=== PATIENT | female | born 1990 | race Caucasian/White ===

== ENCOUNTER 2018-06-20 17:32 | Emergency (ER) | payer OTHER | END 2018-06-20 19:07 | disposition home or self-care (01) | LOC: M ED 17:32 | DX: S43.401A Unspecified sprain of right shoulder joint, initial encounter (principal); W01.0XXA Fall on same level from slipping, tripping and stumbling without subsequent striking against object, initial encounter; Y92.89 Other specified places as the place of occurrence of the external cause; Z79.3 Long term (current) use of hormonal contraceptives; Z91.030 Bee allergy status | CPT/HCPCS: 73030 ==

== ENCOUNTER 2018-10-10 17:23 | Emergency (ER) | payer OTHER ==
[~2018-10-10] VITALS: Ht 152.4 cm; Wt 62.7 kg
[~2018-10-10 17:23] MED LIST: COLA100C5 PO; IBUP-1114 PO; JUNETAB2 PO; MAPA500T2 PO; PRENTAB20 PO
[2018-10-10] MEDS ORDERED: NS 1,000 ML IV ONE (18:00)
[2018-10-10] MEDS ORDERED: PANTOPRAZOLE 40MG INJ (PROTONIX) (C9113) IV ONE (18:00)
[2018-10-10] MEDS ORDERED: ONDANSETRON 4MG/2ML VIAL (J2405) IV ONE (18:00)
[2018-10-10 18:42] LABS: BASO % 0.5 % (0.0-1.0); EOS # 0.3 10^3/uL (0.0-0.50); EOS % 4.8 % (0.0-3.0); HEMATOCRIT 40.4 % (36.0-47.0); HEMOGLOBIN 14.2 g/dl (12.0-15.5); MEAN CORPUSCULAR HEMOGLOBIN 28.1 pg (27.0-33.0); MEAN CORPUSCULAR HGB CONC 35.1 g/dl (32.0-36.5); MONO # 0.5 10^3/uL (0.0-0.8); MONO % 8.2 % (0.0-5.0); NEUTROPHILS # 3.6 10^3/uL (1.8-7.7); NEUTROPHILS % 55.3 % (36.0-66.0); PLATELET COUNT, AUTOMATED 350 10^3/uL (150-450); RED BLOOD COUNT 5.05 10^6/uL (4.00-5.40); WHITE BLOOD COUNT 6.5 10^3/uL (4.0-10.0)
[2018-10-10 19:06] LABS: ALBUMIN 3.8 GM/DL (3.2-5.2); ALT/SGPT 19 U/L (12-78); BILIRUBIN,DIRECT < 0.1 MG/DL (0.0-0.2); BILIRUBIN,TOTAL 0.3 MG/DL (0.2-1.0); BLOOD UREA NITROGEN 12 MG/DL (7-18); CALCIUM LEVEL 8.2 MG/DL (8.5-10.1); CARBON DIOXIDE LEVEL 24 MEQ/L (21-32); CHLORIDE LEVEL 106 MEQ/L (98-107); GLOMERULAR FILTRATION RATE > 60.0 (>60); GLUCOSE, FASTING 87 MG/DL (70-100); LIPASE 137 U/L (73-393); POTASSIUM SERUM 3.8 MEQ/L (3.5-5.1); SODIUM LEVEL 139 MEQ/L (136-145); TOTAL PROTEIN 7.1 GM/DL (6.4-8.2)
[2018-10-10] MEDS ORDERED: ISOVUE-370 76% 100ML VIAL (Q9967) As Ordered ONE (19:17)
--- NOTE | 2018-10-10 20:03 | REPVR ---
EXAM: CT Abdomen and Pelvis With Contrast EXAM DATE/TIME: 10/10/2018 7:27 PM CLINICAL HISTORY: 28 years old, female; Pain; Abdominal pain; Generalized TECHNIQUE: Axial computed tomography images of the abdomen and pelvis with intravenous contrast. All CT scans at this facility use at least one of these dose optimization techniques: automated exposure control; mA and/or kV adjustment per patient size (includes targeted exams where dose is matched to clinical indication); or iterative reconstruction. Coronal and sagittal reformatted images were created and reviewed. CONTRAST: Contrast Material: 100 ml of ISOVUE 370; Contrast Route: IV COMPARISON: No relevant prior studies available. FINDINGS: Lower thorax: No acute findings. 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 Otherwise unremarkable liver. Gallbladder and bile ducts: Unremarkable. No calcified stones. No ductal dilation. Pancreas: Unremarkable. No ductal dilation. Spleen: Unremarkable. No splenomegaly. Adrenals: Normal. No mass. Kidneys and ureters: Horseshoe kidney. No renal stone, focal renal lesion or hydronephrosis. Stomach and bowel: Unremarkable. No obstruction. No mucosal thickening. Appendix: Normal appendix. PELVIS: Bladder: Unremarkable as visualized. Reproductive: Unremarkable as visualized. ABDOMEN and PELVIS: Intraperitoneal space: Unremarkable. No free air. No significant fluid collection. Bones/joints: L4 limbus vertebra. No suspicious bone lesion. Soft tissues: Unremarkable. Vasculature: Unremarkable. No abdominal aortic aneurysm. Lymph nodes: Unremarkable. No enlarged lymph nodes. IMPRESSION: No acute abnormality. Electronically signed by: Maximo Ferreira On 10/10/2018 20:02:55 PM
[2018-10-10] MEDS ORDERED: GI COCKTAIL 50ML BTL(HYOSCYAMINE/MAALOX/LIDOCAINE VISCOUS)(1:3:1) PO ONE (20:15)
[2018-10-10] MEDS ORDERED: ONDA4TAB6 PO (20:40)
[2018-10-10] MEDS ORDERED: SIME180C PO (20:40)
[2018-10-10 20:52] VITALS: BP 118/62
== END 2018-10-10 20:53 | disposition home or self-care (01) ==
LOC: M ED 17:23
DX: R11.10 Vomiting, unspecified (principal); R19.7 Diarrhea, unspecified; Z79.3 Long term (current) use of hormonal contraceptives
CPT/HCPCS: 74177; 80048; 80076; 81001; 81025; 83690; 85025; 87086; 96374; 96375; 99284; C9113; J2405; Q9967

== ENCOUNTER 2018-10-14 19:28 | Emergency (ER) | payer OTHER ==
[~2018-10-14] VITALS: Ht 152.4 cm; Wt 59.1 kg
[2018-10-14 19:28] VITALS: BP 132/79
[~2018-10-14 19:28] MED LIST changes: +ONDA4TAB6 PO; +SIME180C PO
== END 2018-10-14 21:40 | disposition home or self-care (01) ==
LOC: M ED 19:28
DX: K92.1 Melena (principal); Z91.030 Bee allergy status; Z79.3 Long term (current) use of hormonal contraceptives

== ENCOUNTER 2019-02-22 18:36 | Emergency (ER) | payer OTHER ==
[~2019-02-22] VITALS: Ht 152.4 cm; Wt 58.6 kg
[2019-02-22 20:36] VITALS: BP 125/70
--- NOTE | 2019-02-22 20:45 | REPVR ---
EXAM: US First Trimester, Transabdominal EXAM DATE/TIME: 02/22/2019 7:42 PM CLINICAL HISTORY: 28 years old, female; complicated by abdominal or pelvic pain; Lower; First trimester; Gestational age or lmp: 6w 2d; ; Additional info: 6 weeks , abdominal cramping TECHNIQUE: Imaging protocol: Real-time transabdominal obstetrical ultrasound of the maternal pelvis and a first trimester , less than 14 weeks 0 days, with image documentation. COMPARISON: CT ABD/PEL W/IV CONTRAST ONLY 10/10/2018 7:14 PM FINDINGS: GESTATION: Gestation: Single gestational sac demonstrated within the uterus. Single fetus within the gestational sac measures 4.9 mm. 3.8 mm yolk sac demonstrated. Heart rate: heart rate 132 beats per minute. Placenta: Unremarkable. No subchorionic bleed. Amniotic fluid: Amniotic and chorionic fluid are normal for gestational age. BIOMETRY: Estimated gestational age: Gestational age based on crown-rump length is 6 weeks 2 days. Gestational age based on LMP of 01/09/2019 is 6 weeks 2 days. MATERNAL: Uterus: Unremarkable. Cervix: Unremarkable. Right adnexa: Unremarkable. Left adnexa: Unremarkable. Intraperitoneal: No intraperitoneal free fluid. IMPRESSION: Unremarkable first trimester scan at 6 weeks 2 days which corresponds to clinical dates. anatomic survey to be performed at 19-20 weeks if clinically desired. Electronically signed by: Lawson Boyd On 02/22/2019 20:45:52 PM
== END 2019-02-22 21:36 | disposition home or self-care (01) ==
LOC: M ED 18:36
DX: O26.891 Other specified pregnancy related conditions, first trimester (principal); M54.5 Low back pain; R10.2 Pelvic and perineal pain; Z91.030 Bee allergy status; Z3A.01 Less than 8 weeks gestation of pregnancy

== ENCOUNTER 2019-10-12 13:20 | Inpatient (IN) | payer OTHER ==
[~2019-10-12] VITALS: Ht 152.4 cm; Wt 72.4 kg
[2019-10-12] VITALS (25 sets, daily range): BP systolic 104–155; BP diastolic 55–95
[2019-10-12] MEDS ORDERED: LACTATED RINGER'S 1000 ML IV ONE (14:30)
[2019-10-12] MEDS ORDERED: FENTANYL 2MCG/ML ROPIVACAINE 0.2% IN 0.9% NACL 100ML IVBAG As Ordered ONE (14:41)
[2019-10-12 14:43] LABS: HEMATOCRIT 36.1 % (36.0-47.0); HEMOGLOBIN 11.5 g/dl (12.0-15.5); MEAN CORPUSCULAR HEMOGLOBIN 23.5 pg (27.0-33.0); MEAN CORPUSCULAR HGB CONC 31.9 g/dl (32.0-36.5); MEAN CORPUSCULAR VOLUME 73.7 fl (80.0-96.0); PLATELET COUNT, AUTOMATED 279 10^3/uL (150-450); WHITE BLOOD COUNT 10.8 10^3/uL (4.0-10.0)
[2019-10-12] MEDS ORDERED: LR 1,000 ML IV SCH (15:00)
[2019-10-12] MEDS ORDERED: LACTATED RINGER'S 1000 ML IV PRN (15:30)
[2019-10-12] MEDS ORDERED: NALOXONE INJ 0.4 MG/1 ML VIAL (J2310) IV PRN (15:30)
[2019-10-12] MEDS ORDERED: ONDANSETRON 4MG/2ML VIAL (J2405) IV PRN (15:30)
[2019-10-12] MEDS ORDERED: diphenhydrAMINE INJ 50MG/ML VIAL (J1200) IV PRN (15:30)
[2019-10-12] MEDS ORDERED: ePHEDrine SULFATE 25 MG/5 ML(5MG/ML) SYRINGE IV PRN (15:30)
[2019-10-12] MEDS ORDERED: REFRIGERATOR IV KEYS XX PRN (15:30)
[2019-10-12] MEDS ORDERED: EPIDURAL COMMENT XX SCH (15:30)
[2019-10-12] MEDS ORDERED: FENTANYL/ROPIVACAINE/NACL BAG 100 ML EPIDURAL SCH (15:30)
[2019-10-12] MEDS ORDERED: EPIDURAL/PCA KEYS XX PRN (15:30)
[2019-10-12] MEDS ORDERED: OXYTOCIN 30 UNITS IN 0.9% NaCl 500ML IV BAG (J2590) As Ordered ONE (16:14)
[2019-10-12] MEDS ORDERED: OXYTOCIN DRIP 30 UNITS in IV 1 EA IV SCH (18:30)
[2019-10-12 20:21] LABS: CORD GAS ABE A -3.4; CORD GAS HCO3 A 22.3 MEQ/L; CORD GAS O2 SAT A 58.6 %; CORD GAS PCO2 A 42.6 mmHg; CORD GAS PH A 7.337 UNITS; CORD GAS PO2 A 26.5 mmHg; CORD GAS SBC A 20.7 MEQ/L; CORD GAS TCO2 A 23.6 MEQ/L
[2019-10-12 20:22] LABS: CORD GAS ABE V -3.2; CORD GAS HCO3 V 22.7 MEQ/L; CORD GAS O2 SAT V 58.3 %; CORD GAS PCO2 V 43.6 mmHg; CORD GAS PH V 7.334 UNITS; CORD GAS PO2 V 25.6 mmHg; CORD GAS SBC V 20.8 MEQ/L
[2019-10-12] MEDS ORDERED: METHYLERGONOVINE MALEATE 0.2 MG TAB PO PRN (20:30)
[2019-10-12] MEDS ORDERED: IBUPROFEN 600 MG TAB PO PRN (20:30)
[2019-10-12] MEDS ORDERED: DIBUCAINE 1% OINTMENT 30GM TOP PRN (20:30)
[2019-10-12] MEDS ORDERED: ACETAMINOPHEN TAB 650MG DOSE (2X325MG) PO PRN (20:30)
[2019-10-12] MEDS ORDERED: OXYTOCIN INJ 10 UNITS/ML VIAL (J2590) IV ONE (20:30)
[2019-10-12] MEDS ORDERED: MEASLES,MUMPS,RUBELLA VACCINE INJ (MMR-II) (90707) SC SCH (20:30)
[2019-10-12] MEDS ORDERED: MOM 30ML SUSPENSION UDC PO PRN (20:30)
[2019-10-12] MEDS ORDERED: DOCUSATE SODIUM 100 MG CAP PO PRN (20:30)
[2019-10-12] MEDS ORDERED: ACETAMINOPHEN 500 MG TAB PO PRN (20:30)
[2019-10-12] MEDS ORDERED: OXYTOCIN DRIP 30 UNITS in IV 1 EA IV ONE (20:30)
[2019-10-12] MEDS ORDERED: ANUSOL HC CREAM 30GM TOP PRN (20:30)
[2019-10-12] MEDS ORDERED: RHOGAM 300 MCG (1500 IU) INJ (J2790) IM SCH (20:30)
[2019-10-13 06:00] VITALS: BP 102/56
--- NOTE | 2019-10-13 06:44 | HPE ---
DATE OF ADMISSION: 10/12/2019 HISTORY: 29-year-old, 2, para 1, last menstrual period (LMP) 01/09/2019, estimated date of confinement (EDC) 10/16/2019, at 39 weeks of gestation with a history of contractions. No vaginal bleeding or loss. On initial digital examination found to be 6-7, bulging membranes and -3 O station and 80% effaced. PAST HISTORY: In May 2016, spontaneous vaginal delivery at 40 weeks, female, 7 pounds 8 ounces. Labs are A positive, HIV negative, hepatitis negative, RPR negative, rubella immune. Varicella immune. Pap normal. Urine negative. Gonorrhea and chlamydia are negative. 1-hour glucose 131. Group B streptococcus (GBS) is negative. Blood pressure 133/77, respirations 18, pulse 97, temperature 97.8. Urine 10.25, pH 5 and trace protein. She has a category 1 strip, the occasional variable accelerations are noted, no decelerations, moderate variability they palpate moderate. As mentioned, her cervical dilatation as above. Our plan of management is to hydrate the patient, epidural planned, vaginal delivery. The rest examination is unremarkable. She is normocephalic, atraumatic. Neck full range of motion. Pupils equal and react to light. Distal pulses symmetric. No evidence of deep venous thrombosis (DVT), pulmonary embolism (PE) or superficial phlebitis. Chest is clear bilaterally bases. No wheezes or rhonchi. No costovertebral angle (CVA) tenderness. Abdomen is soft, four quadrant bowel sounds. Appropriate fundus height, vertex presenting. She has no rashes, lesions or pruritus. No arthralgia or myalgia. No complaint of joint pain. No complaint of cough, wheeze, shortness of breath or dyspnea on exertion. No bleeding. Neuro complete. No nausea, vomiting, diarrhea, constipation. No diabetic issues. No heat or cold issues. She has no sexually transmitted diseases (STDs) and no abnormal paps. Her past medical history unremarkable. Surgical history noncontributory. Family history noncontributory. She does not smoke, drink, abuse drugs. No domestic violence, supportive, . In summary, we have a term gestation in active labor. We discussed the consent for vaginal delivery, which is through the vagina, with possible assistance of forceps or vacuum if needed for maternal or indications. These are instruments that can assist with vaginal delivery when normal pushing efforts cannot achieve vaginal delivery on their own or when delivery is needed in emergency for baby's well-being. Medications may be required to induce or augment labor. In order achieve vaginal delivery an episiotomy may or may not be required to help the baby deliver vaginally you may also require repair of any lacerations or tears of the vagina, vulva that are caused by delivery, in some cases emergencies can occur that require emergency section so quickly there may not be time to sign the official documents, however, the provider will discuss the reasons which are usually done for medical or indications is delivery through an incision on your abdomen before proceeding with surgery we impressed upon the patient that it may be safer for mom and baby than continuing labor, delivery and performed only for clinical indications. Risks of vaginal delivery include not limited to bleeding, infection, injury to vagina, pelvic structures, injury to baby, damage to the uterus, reaction to anesthesia, uterine rupture, risk of hysterectomy for life-threatening bleeding issues. Medication used to induce or augment increase risk of section, hysterectomy, hemorrhage, heart rate abnormalities, increased risk of perineal or vaginal lacerations, risk of urinary and bowel incontinence. Risk of forceps and vacuums include increased perineal and vaginal lacerations, scratches, hematomas to the head, intracranial bleed to the baby or bruising or admission to intensive care unit (NICU). The patient expressed understanding of same. All questions were answered. 20-minute discussion. RENAE
[2019-10-13 07:29] LABS: HEMATOCRIT 33.2 % (36.0-47.0); HEMOGLOBIN 10.6 g/dl (12.0-15.5); MEAN CORPUSCULAR HEMOGLOBIN 23.8 pg (27.0-33.0); MEAN CORPUSCULAR HGB CONC 31.9 g/dl (32.0-36.5); MEAN CORPUSCULAR VOLUME 74.4 fl (80.0-96.0); PLATELET COUNT, AUTOMATED 196 10^3/uL (150-450); RED BLOOD COUNT 4.46 10^6/uL (4.00-5.40); WHITE BLOOD COUNT 10.2 10^3/uL (4.0-10.0)
[2019-10-13] MEDS ORDERED: OXYTOCIN INJ 10 UNITS/ML VIAL (J2590) As Ordered ONE (07:54)
[2019-10-13] MEDS: IBUPROFEN 800 MG TAB PO PRN ×2 (08:09→20:30)
[2019-10-13] MEDS: PRENATAL VITAMINS CHEWABLE TABLET PO SCH (08:09)
--- NOTE | 2019-10-13 12:50 | IPN ---
DATE: 10/13/2019 This lady is a 29-year-old, 2, now para 2, had a spontaneous vaginal delivery at 39 weeks, male , 6, 13, 19781 grams, 9 and 9 at one and five minutes respectively. On her first day, we discussed phlebitis, cystitis, mastitis, endometritis, cellulitis, diet, exercise, pain management, perineal, breast and wound care. Blood pressure 1025/56, respirations 16, pulse 84, temperature 97.1. Admitting hemoglobin is 11.5, hematocrit 36.1, and platelets are 279. day #1 hemoglobin pending. She is breast-feeding, doing well, passing gas, voiding. No issues at the present time. Uterus is 2 below. Lochia is moderate. Four quadrant bowel sounds. We await clearance by the precision assembler for circumcision. The patient is planned on discharge for tomorrow morning. Medications were dispensed at [place].
--- NOTE | 2019-10-13 16:42 | DN ---
DATE: 10/12/2019 A 29-year-old 2, para 1, admitted in active labor at 6-7 cm had an artificial rupture of membranes (AROM) with clear liquor. Eventually labored down. Had a spontaneous vaginal delivery with four pushes of a live- male , scores 9 and 9 at one and five, respectively. Terminal meconium was noted, 6 pounds 13 ounces, 3100 grams. Arterial pH 7.33, base excess -3.4, venous pH 7.33, base excess -3.2. Placenta, three vessels, spontaneously delivered. Membranes and tissues intact. Perineum was intact. Anterior, posterior, and lateral johnson were intact. Sphincter was tight. Uterus contracted well down on Pitocin. The patient and baby tolerating procedure well.
[2019-10-13 17:58] VITALS: BP 121/75
[2019-10-14 05:35] VITALS: BP 115/66
[2019-10-14] MEDS ORDERED: IBUP80TA PO (06:51)
[2019-10-14] MEDS ORDERED: DOCU100C16 PO (06:51)
[2019-10-14] MEDS ORDERED: PROC1CRE5 TOP (06:51)
[2019-10-14] MEDS ORDERED: DIBU10OI TOP (06:51)
[2019-10-14] MEDS: PRENATAL VITAMINS CHEWABLE TABLET PO SCH (09:13)
--- NOTE | 2019-10-14 21:03 | IPN ---
DATE: 10/12/2019 This patient has requested circumcision of her male infant. After discussing risks and benefits of circumcision, the medical and nonmedical indications, penile block and aftercare, expressed understanding of penile block and aftercare, signed the consent form. All questions were answered, 20-minute discussion. We made clearance by the special officer automat.
--- NOTE | 2019-10-15 11:15 | DSES ---
DATE OF ADMISSION: 10/12/2019 DATE OF DISCHARGE: 10/14/2019 This lady is a 29-year-old 2 now para 2 who was admitted in spontaneous labor at 39 weeks of gestation, had a spontaneous vaginal delivery of a male, 6 pounds, 13 ounces, 3100 grams, scores nine and nine at 1 and 5 minutes, respectfully. Arterial pH 7.33, base excess -3.4, venous pH 7.33, base excess -3.2. We discussed phlebitis, cystitis, mastitis, endometritis, cellulitis, diet, exercise, pain management, perineal, breast and wound care. On discharge, her blood pressure is 115/66, respirations 16, pulse 84, temperature 97.9. Her admitting hemoglobin was 11.5, hematocrit 36.1 and platelets 279. Discharge hemoglobin 10.6, hematocrit 33.2 and platelets are 196. The rest of the examination is unremarkable. She is normocephalic, atraumatic. Neck full range of motion. Pupils equal and reactive to light. Distal pulses are symmetric. No evidence of deep vein thrombosis (DVT), pulmonary embolism (PE), or superficial phlebitis. Chest is clear bilaterally to bases. No wheezes or rhonchi. No CVA tenderness. Abdomen soft, uterus 2 below. Lochia is moderate. Four quadrant bowel sounds are noted. Perineum is clean and intact. She has no rashes, lesions or pruritus. No arthralgia, myalgia. No complaint joint pain. No complaint cough, wheeze, shortness of breath or dyspnea on exertion. No nausea, vomiting, diarrhea or constipation. No urgency or frequency. In summary, we have a term gestation, delivered a live male . is going well. PLAN: Discharge today. Six week checkup at [facility]. Medications dispensed at [facility].
== END 2019-10-14 10:40 | disposition home or self-care (01) | DRG 807 ==
LOC: M LDO 13:20 → M LDI 14:23 → M OBS 21:58
PROVIDERS: ADMIT Obstetrics & Gynecology; ATTEND Obstetrics & Gynecology
PROC: 10E0XZZ Delivery of Products of Conception, External Approach (ICD-10-PCS; principal; 2019-10-12)
PROC: 10907ZC Drainage of Amniotic Fluid, Therapeutic from Products of Conception, Via Natural or Artificial Opening (ICD-10-PCS; 2019-10-12)
DX: O77.0 Labor and delivery complicated by meconium in amniotic fluid (principal); Z37.0 Single live birth; Z3A.39 39 weeks gestation of pregnancy